=== PATIENT | male | born 1975 | race Caucasian/White ===

== ENCOUNTER 2016-04-02 12:02 | Emergency (ER) | payer OTHER ==
[~2016-04-02] VITALS: Ht 175.3 cm; Wt 86.2 kg
[~2016-04-02 12:02] MED LIST: OMEP20CA5 PO
[2016-04-02 13:01] LABS: Basophils # (auto) 0 uL; Basophils % (auto) 0.2 % (0.0-2.0); Eosinophils # (auto) 0 uL; Eosinophils % (auto) 0.3 % (0.0-7.0); Hematocrit 48.5 % (41.0-53.0); Hemoglobin 15.9 g/dL (13.5-17.5); Lymphocytes # (auto) 1.3 uL; Lymphocytes % (auto) 19.8 % (10.0-50.0); Mean Corpuscular Hemoglobin 32.1 pg (28.0-32.0); Mean Corpuscular Hgb Conc. 32.9 g/dL (32.0-36.0); Mean Corpuscular Volume 97.7 fL (80.0-100.0); Monocytes # (auto) 0.4 uL; Monocytes % (auto) 5.8 % (0.0-12.0); Neutrophils # (auto) 4.7 uL; Neutrophils % (auto) 73.9 % (37.0-80.0); Platelet Count (auto) 141 10^3/uL (140-450); Red Cell Distribution Width 14.5 % (11.6-16.0); White Blood Cell 6.4 10^3/uL (4.4-10.8)
[2016-04-02 14:32] LABS: Albumin 4.9 g/dL (3.4-5.0); BUN/Creatinine Ratio 9.7; Bilirubin, Total 1.5 mg/dL (0.2-1.0); Calcium 9.1 mg/dL (8.5-10.1); Potassium 3.2 mmol/L (3.5-5.1); Total Protein 9.5 g/dL (6.4-8.2)
[2016-04-03] MEDS ORDERED: ONDANSETRON HCL 4 MG/2 ML VIAL ONE (01:48)
[2016-04-03] MEDS ORDERED: SODIUM CHLORIDE 0.9% 1,000 ML IV ONE ×4 (02:15→07:19)
[2016-04-03] MEDS ORDERED: ONDANSETRON HCL 4 MG/2 ML VIAL IV ONE ×2 (02:15→06:45)
[2016-04-03] MEDS ORDERED: HYDROmorphone HCL 2 MG/ML VL IV ONE ×3 (02:15→11:15)
[2016-04-03 04:24] LABS: Urine Color Brown (Yellow); Urine Glucose Normal (Normal); Urine Hyaline Cast MANY /lpf (0 - 2); Urine Mucus FEW (None Seen); Urine Nitrite Negative (Negative); Urine RBC 4 /hpf (0 - 3); Urine Squamous Epithelial Cell FEW /hpf (<5)
[2016-04-03 04:27] LABS: Urine Blood 1+ /uL (Negative); Urine Ketone 1+ (Negative)
[2016-04-03 04:35] LABS: Urine Bilirubin 2+ (Negative)
[2016-04-03] MEDS ORDERED: PROMETHAZINE HCL 25 MG/ML 1ML IV ONE (04:45)
[2016-04-03] MEDS ORDERED: MORPHINE SULF INJ 2 MG/ML SYRINGE 1ML IV ONE (04:45)
[2016-04-03] MEDS ORDERED: SODIUM CHLORIDE 0.9% 250 ML IV ONE (07:19)
[2016-04-03] MEDS ORDERED: chlordiazePOXIDE HCL 25 MG CAP PO ONE (07:30)
[2016-04-03] MEDS ORDERED: THIAMINE INJ 100 MG, MULTIPLE VITAMIN 10 ML, FOLIC ACID 1 MG, MAGNESIUM SULF SDV 50% 8 ... IV ONE ×5 (07:30)
[2016-04-03] MEDS ORDERED: IOHEXOL 300 MG/ML 100ML BOTTLE IJ ONE (08:07)
[2016-04-03] MEDS ORDERED: POTASSIUM CHL 10% (20 MEQ/15ML) ORAL SOLN PO ONE (08:30)
[2016-04-03 11:40] VITALS: BP 145/97
== END 2016-04-03 11:56 | disposition short-term general hospital (02) ==
LOC: ER 12:06
DX: K85.90 Acute pancreatitis without necrosis or infection, unspecified (principal); F10.10 Alcohol abuse, uncomplicated; E11.9 Type 2 diabetes mellitus without complications; I10 Essential (primary) hypertension; F17.210 Nicotine dependence, cigarettes, uncomplicated
CPT/HCPCS: 36415; 74177; 76705; 80053; 80320; 81001; 82150; 83690; 85025; 96361; 96365; 96366; 96375; 96376; 99285; G0434; J1170; J2270; J2405; J2550; J3411; J3475; J7030; Q9967